=== PATIENT | male | born 1965 | race African-American/Black ===

== ENCOUNTER 2016-11-24 13:14 | Emergency (ER) | payer OTHER ==
[~2016-11-24] VITALS: Ht 182.9 cm; Wt 101.4 kg
[~2016-11-24 13:14] MED LIST: ALLO300T46 PO; AMLO-145 PO; ATEN-51 PO; DIGO125T6 PO; FAMO20TA18 PO; HYDR-762 PO; POTA8TAB2 PO; SIMV40TA2 PO; VALS320T11 PO; WARF2.5T PO
[2016-11-24 13:24] VITALS: Ht 182.9 cm; Wt 101.4 kg
--- NOTE | 2016-11-24 16:04 | ERA ---
ER Documentation Chief Complaint Date/Time DATE: 11/24/16 TIME: 16:04 Chief Complaint Abdominal hematoma HPI The patient is a 51-year-old male, presenting to the ER because he fell 2 days ago and had the right-sided abdominal hematoma. He wanted to be checked for internal injury because he is on Coumadin. He denies any hematochezia, hematuria, hematemesis. Denies headache, neck pain, chest pain, vomiting, dysuria, diarrhea. He smokes socially, denies drink Past medical history: Dyslipidemia, hypertension, gout Past surgical history: Aortic valve replacement ROS All systems reviewed and are negative except as per history of present illness. Medications Home Meds Reported Medications Hydrocodone Bit-Acetaminophen* (Colver*) 10-325 Mg Tablet, 1 TAB PO Q4H Y for PAIN, TAB 12/22/14 Atenolol* (Atenolol*) 25 Mg Tablet, 25 MG PO BID, TAB 12/22/14 Amlodipine Besylate* (Amlodipine Besylate*) 5 Mg Tablet, 2.5 MG PO DAILY, TAB 12/22/14 Allopurinol* (Zyloprim*) 300 Mg Tablet, 300 MG PO DAILY 12/27/13 Valsartan* (Diovan*) 320 Mg Tablet, 160 MG PO BID 11/21/09 Digoxin* (Lanoxin*) 125 Mcg Tablet, 125 MCG PO DAILY DAILY 11/21/09 Warfarin Sodium* (Coumadin*) 2.5 Mg Tablet, 5 MG PO DAILY 11/21/09 Potassium Chloride* (Klor-Con*) 8 Meq Tablet.sa, 8 MEQ PO DAILY 11/21/09 Famotidine* (Famotidine*) 20 Mg Tablet, 20 MG PO BID DAILY 11/21/09 Simvastatin* (Zocor*) 40 Mg Tablet, 40 MG PO QHS QHS 11/21/09 Allergies Allergies: Coded Allergies: No Known Drug Allergies (Verified Allergy, Mild, 03/18/16) PMhx/Soc History of Surgery: Yes Anesthesia Reaction: No Hx Neurological Disorder: No Hx Respiratory Disorders: No Hx Cardiac Disorders: Yes (DM, HIGH CHOLESTROL) Hx Psychiatric Problems: No Hx Miscellaneous Medical Probl: Yes (HTN, DYSLIPIDEMIA) Hx Alcohol Use: Yes (1-2 DRINKS/WEEK) Hx Substance Use: No Hx Tobacco Use: No Physical Exam Vitals Vital Signs Date Time Temp Pulse Resp B/P Pulse Ox O2 Delivery O2 Flow Rate FiO2 11/24/16 17:40 97.9 57 18 141/80 100 Room Air 11/24/16 13:24 97.8 61 18 143/68 100 Physical Exam Const: No acute distress. Head: Atraumatic. Eyes: Normal Conjunctiva. ENT: Normal External Ears, Nose and Mouth. Neck: Full range of motion. No meningismus. Resp: Clear to auscultation bilaterally. Cardio: Regular rate and rhythm, no murmurs. Abd: Soft, non distended, normal bowel sounds, non tender. Small right sided abdominal hematoma, no rigidity, rebound, CVA tenderness Skin: No petechiae or rashes. Back: No midline or flank tenderness. Ext: No cyanosis, or edema. Neur: Awake and alert. No focal deficit Psych: Normal Mood and Affect. Result Diagram: 11/24/16 1645 11/24/16 1645 Results 24 hrs Laboratory Tests Test 11/24/16 16:45 Activated Partial Thromboplast Time 44.4Sec Alanine Aminotransferase (ALT/SGPT) 40IU/L Albumin 4.4g/dl Albumin/Globulin Ratio 1.12 Alkaline Phosphatase 97IU/L Anion Gap 17 Aspartate Amino Transf (AST/SGOT) 38IU/L Basophils # 0.010^3/ul Basophils % 0.7% Blood Morphology Comment Blood Urea Nitrogen 15mg/dl Calcium Level 9.4mg/dl Carbon Dioxide Level 29mmol/L Chloride Level 101mmol/L Creatinine 0.98mg/dl Direct Bilirubin 0.00mg/dl Eosinophils # 0.110^3/ul Eosinophils % 1.7% Globulin 3.90g/dl Glucose Level 102mg/dl Hematocrit 38.2% Hemoglobin 12.2g/dl INR International Normalized Ratio 3.28 Indirect Bilirubin 0.8mg/dl Lipase 46U/L Lymphocytes # 2.710^3/ul Lymphocytes % 45.7% Mean Corpuscular Hemoglobin 25.3pg Mean Corpuscular Hemoglobin Concent 31.8g/dl Mean Corpuscular Volume 79.6fl Mean Platelet Volume 7.5fl Monocytes # 0.610^3/ul Monocytes % 9.3% Neutrophils # 2.610^3/ul Neutrophils % 42.6% Nucleated Red Blood Cells # 0.010^3/ul Nucleated Red Blood Cells % 0.0/100WBC Platelet Count 50394^3/UL Potassium Level 4.8mmol/L Prothrombin Time 33.9Sec Prothrombin Time Ratio 2.6 Red Blood Count 4.8010^6/ul Red Cell Distribution Width 13.2% Sodium Level 142mmol/L Total Bilirubin 0.8mg/dl Total Protein 8.3g/dl White Blood Count 6.010^3/ul Current Medications Medications (Trade) Dose Ordered Sig/Tesfaye Route PRN Reason Start Time Stop Time Status Last Admin Dose Admin IV Flush 10 ml 10 ml STK-MED ONCE .ROUTE 11/24/16 17:56 11/24/16 17:57 DC 11/24/16 19:00 Sodium Chloride (NS) 100 ml @ ud STK-MED ONCE .ROUTE 11/24/16 17:56 11/24/16 17:57 DC 11/24/16 19:04 Iohexol (Omnipaque 300mg/ ml) 150 ml STK-MED ONCE .ROUTE 11/24/16 17:56 11/24/16 17:57 DC 11/24/16 19:02 Procedures/[place] [id number] Radiology Main Line: [phone] DIAGNOSTIC IMAGING REPORT Patient: KIM MONSALVE : 1965 Age: 51 Sex: M MR #: [id number] DOS: 11/24/16 1609 Ordering MD: ISABELLA ROSENTHAL MD Location: E/R Room/Bed: PROCEDURE: CT Abdomen and Pelvis with contrast. CLINICAL INDICATION: Right flank pain after fall, history of kidney stones. TECHNIQUE: A CT scan of the abdomen and pelvis was performed with intravenous contrast. The patient was scanned following the uncomplicated intravenous administration of 100 cc of Omnipaque-300. Coronal and sagittal reformatted images were obtained from the axial source images. Images were reviewed on a high-resolution PACS workstation. CTDIvol: 19.60 mGy. DLP: 1098.89 mGy-cm. One or more of the following dose reduction techniques were used: - Automated exposure control. - Adjustment of the mA and/or kV according to patient size. - Use of iterative reconstruction technique. COMPARISON: None. FINDINGS: The lung bases are clear. There are epicardial pacer leads in the anterior thoracoabdominal region. The liver is unremarkable. The gallbladder is normal in appearance. The common bile duct is not dilated. The spleen is not enlarged. No pancreatic lesion is identified and there is no pancreatic ductal dilatation. The adrenal glands are unremarkable. The kidneys are normal in size. There is no perinephric fat stranding. No hydronephrosis is seen. There are a few nonobstructing stones in both kidneys measuring up to 2 mm on the right. The small and large bowel are normal in caliber. There is no bowel wall thickening. The appendix is normal. The urinary bladder is unremarkable. The pelvic organs are within normal limits. No lymphadenopathy is identified. There is no ascites. No pneumoperitoneum is seen. There are mild arterial calcifications. There is infiltration of the subcutaneous fat along the right flank. No suspicious osseous lesion is idenitified. There is partial fusion across the anterior left sacroiliac joint. IMPRESSION: 1. Infiltration of the subcutaneous fat along the right flank, probably post- traumatic. 2. No evidence of injury to abdominal and pelvic viscera. 3. No fracture. 4. A few nonobstructing stones in both kidneys measuring up to 2 mm on the right. RPTAT: HTAR .Miles Jenkins MD, MD Date Time Electronically viewed and signed by .Miles Jenkins MD, on 11/24/2016 19:21 .R/ CC: ISABELLA ROSENTHAL MD MEDICAL MAKING DECISION: The patient is a 51-year-old male, presenting with acute abdominal hematoma. The differential diagnoses considered include but are not limited to cholelithiasis, cholecystitis, cystitis, pancreatitis, hepatitis, gastritis, peptic ulcer disease, gastric ulcer, appendicitis, diverticulitis, cholangitis, choledocholithiasis, partial small bowel obstruction. Departure Diagnosis: Primary Impression: Abdominal wall hematoma Condition: Good Comments I discussed the findings with the patient. I advised the patient to follow-up with the primary physician in about 1-2 days, sooner if needed and return if any concern. ISABELLA ROSENTHAL MD Nov 24, 2016 16:04
[2016-11-24 16:52] LABS: BASOPHILS % 0.7 % (0.0-2.0); EOSINOPHILS # 0.1 10^3/ul (0.0-0.5); EOSINOPHILS % 1.7 % (0.0-7.0); HEMATOCRIT 38.2 % (42.0-52.0); HEMOGLOBIN 12.2 g/dl (14.0-18.0); LYMPHOCYTES # 2.7 10^3/ul (0.8-2.9); LYMPHOCYTES % 45.7 % (15.0-51.0); MEAN CORPUSCULAR HEMOGLOBIN 25.3 pg (29.0-33.0); MEAN CORPUSCULAR HGB CONC 31.8 g/dl (32.0-37.0); MEAN CORPUSCULAR VOLUME 79.6 fl (82.0-101.0); MEAN PLATELET VOLUME 7.5 fl (7.4-10.4); MONOCYTE # 0.6 10^3/ul (0.3-0.9); MONOCYTES % 9.3 % (0.0-11.0); NEUTROPHIL # 2.6 10^3/ul (1.6-7.5); NEUTROPHILS % 42.6 % (39.0-77.0); PLATELET COUNT 278 10^3/UL (140-440); RED CELL DISTRIBUTION WIDTH 13.2 % (11.5-14.5)
[2016-11-24 16:53] LABS: CONDITION 1; LH ANALYZER COMMENTS 1
[2016-11-24 17:04] LABS: INR 3.28; PARTIAL THROMBOPLASTIN TIME 44.4 Sec (25.0-35.0); PROTIME 33.9 Sec (12.2-14.2); PT RATIO 2.6
[2016-11-24 17:12] LABS: ALBUMIN 4.4 g/dl (3.3-4.9); POTASSIUM 4.8 mmol/L (3.5-5.1)
[2016-11-24 17:15] LABS: ALBUMIN/GLOBULIN RATIO 1.12; BILIRUBIN,INDIRECT 0.8 mg/dl (0-1.1); BILIRUBIN,TOTAL 0.8 mg/dl (0.2-1.3); CALCIUM 9.4 mg/dl (8.4-10.2); CREATININE 0.98 mg/dl (0.61-1.24); TOTAL PROTEIN 8.3 g/dl (6.1-8.1)
[2016-11-24] MEDS ORDERED: IOHEXOL 300MG/ML 150 ML BTL ONE (17:56)
[2016-11-24] MEDS ORDERED: SOD CHLORIDE 0.9% 100 ML ONE (17:56)
--- NOTE | 2016-11-24 19:21 | RADRPT ---
PROCEDURE: CT Abdomen and Pelvis with contrast. CLINICAL INDICATION: Right flank pain after fall, history of kidney stones. TECHNIQUE: A CT scan of the abdomen and pelvis was performed with intravenous contrast. The patie nt was scanned following the uncomplicated intravenous administration of 100 cc of Omnipaque-300. C oronal and sagittal reformatted images were obtained from the axial source images. Images were revie wed on a high-resolution PACS workstation. CTDIvol: 19.60 mGy. DLP: 1098.89 mGy-cm. One or more of the following dose reduction techniques were used: - Automated exposure control. - Adjustment of the mA and/or kV according to patient size. - Use of iterative reconstruction technique. COMPARISON: None. FINDINGS: The lung bases are clear. There are epicardial pacer leads in the anterior thoracoabdominal region. The liver is unremarkable. The gallbladder is normal in appearance. The common bile duct is not dila benjy. The spleen is not enlarged. No pancreatic lesion is identified and there is no pancreatic ducta l dilatation. The adrenal glands are unremarkable. The kidneys are normal in size. There is no perinephric fat stranding. No hydronephrosis is seen. Th ere are a few nonobstructing stones in both kidneys measuring up to 2 mm on the right. The small and large bowel are normal in caliber. There is no bowel wall thickening. The appendix is normal. The urinary bladder is unremarkable. The pelvic organs are within normal limits. No lymphadenopathy is identified. There is no ascites. No pneumoperitoneum is seen. There are mild a rterial calcifications. There is infiltration of the subcutaneous fat along the right flank. No suspicious osseous lesion is idenitified. There is partial fusion across the anterior left sacroi liac joint. IMPRESSION: 1. Infiltration of the subcutaneous fat along the right flank, probably post-traumatic. 2. No evidence of injury to abdominal and pelvic viscera. 3. No fracture. 4. A few nonobstructing stones in both kidneys measuring up to 2 mm on the right. RPTAT: HTAR .Miles Jenkins MD, MD Date Time Electronically viewed and signed by .Miles Jenkins MD, MD on 11/24/2016 19:21 .[place]
[2016-11-24 19:56] VITALS: BP 144/68; PULSE 59; RESP 18; TEMP 98.6
== END 2016-11-24 19:59 | disposition home or self-care (01) ==
LOC: E/R 13:14
DX: S30.1XXA Contusion of abdominal wall, initial encounter (principal); I10 Essential (primary) hypertension; E11.9 Type 2 diabetes mellitus without complications; W18.39XA Other fall on same level, initial encounter; Y92.9 Unspecified place or not applicable; Z79.01 Long term (current) use of anticoagulants
CPT/HCPCS: 74177; 80053; 83690; 85025; 85610; 85730; 93005; Q9967; Z7502; Z7610

== ENCOUNTER 2019-05-16 08:05 | Day surgery (SDC) | payer OTHER ==
[~2019-05-16] VITALS: Ht 182.9 cm; Wt 99.0 kg
[~2019-05-16 08:05] MED LIST changes: +ALLO300T2 PO; -ALLO300T46 PO; +ALLO300T84 PO; +AMLO5TAB4 PO; +CHOL10009 PO; +COU1 PO; +DIGO125T PO; -DIGO125T6 PO; +DIGO125T93 PO; +FER325 PO; +FURO20TA3 PO; +INDO-39 PO; +POTA8CAP PO; +SIMV40TA3 PO; -VALS320T11 PO; +VALS320T2 PO; +VENL75CA89 PO
[2019-05-16 09:11] VITALS: Ht 182.9 cm; Wt 99.0 kg
[2019-05-16 09:13] VITALS: BP 117/56; PULSE 54; RESP 16
[2019-05-16] MEDS ORDERED: LIDOCAINE 2% VISC 15 ML CUP ONE (09:20)
[2019-05-16] MEDS ORDERED: MIDAZOLAM 1 MG/ML 2 ML INJ ONE ×2 (09:48→10:40)
[2019-05-16] MEDS ORDERED: FENTAnyl 50 MCG/ML VIAL ONE (09:49)
[2019-05-16 11:47] VITALS: BP 123/74; PULSE 57; RESP 18
--- NOTE | 2019-05-18 15:44 | RADRPT ---
Transesophageal Echo Report Patient Name: KIM MONSALVEPatient ID: [id number] : [birth year] (54y 1m)Study Date: 05/16/2019 9:56:46 AM Gender: MAccession #: [id number] Tech: SN Location: Ref.Physician: DUSTIN HERNANDEZ Height(Cm): BSA: Weight(Kg): Quality: GoodAccount #: Procedures: Transesophageal Echo Report: Transesophageal echocardiogram was performed. PREP: Patient received pre-procedure education; informed consent, baseline vital signs, and focused history and physical were obtained. SEDATION: Oropharangeal anesthesia was achieved using 2-3 sprays of Hurricane topical anesthesia. Systemic sedation was achieved. ESOPHAGEAL INTUBATION: After suitable sedation, the probe was passed. Continuous pulse oximetry, electrocardiographic, and blood pressure monitoring were maintained throughout the procedure. Standard views were obtained in the transgastric, mid-esophageal, and basal planes at approximately 0, 30, 90, and 120 degrees. In addition, a normal saline study was performed. No immediate MARCO ANTONIO complications noted. Indications: Prosthetic Valve Dysfunction. Description of Procedure: Rangappa. Zeeshan Sinclair A complete transesophageal echocardiogram study was performed. Additional evaluation with color flow Doppler and limited spectral Doppler was performed. Continuous HR, BP, ECG, and O2 sat monitoring was performed during the procedure. The patient received pre-procedural education. Baseline vital signs and a focused history and physical were obtained. The MARCO ANTONIO study was then performed under deep sedation with IV propofol provided by the anesthesiology service. After suitable sedation, the probe was passed without difficulty. Continuous pulse oximetry, electrocardiographic monitoring, and blood pressure monitoring were maintained throughout the procedure. No complications were noted and the patient was recovered without difficulty. Findings: Left Ventricle: Normal left ventricular systolic function. Ejection fraction is visually estimated at. Ejection fraction is measured at 55 %. No left ventricular thrombus visualized. Right Ventricle: Normal right ventricular systolic function. Left Atrium: There is mild enlargement of left atrium. No left atrial thrombus. Right Atrium: Not well visualized. Atrial Septum: Normal atrial septum. No shunt by color Doppler. Mitral Valve: Normal appearance and function of the mitral valve with trace physiologic regurgitation. Aortic Valve: Normal appearing and functioning aortic valve prosthesis. Tricuspid Valve: Normal appearance and function of the tricuspid valve with trace physiologic regurgitation. Pericardium: Normal pericardium with no significant pericardial effusion. Conclusions: Normal left ventricular systolic function. Ejection fraction is visually estimated at. Ejection fraction is measured at 55 %. No left ventricular thrombus visualized. There is mild enlargement of left atrium. No left atrial thrombus. Normal appearing and functioning aortic valve prosthesis with trace regurgitation. Normal atrial septum. No shunt by color Doppler. Electronically Signed By: Dustin Hernandez 2019-05-18 15:46:27 PDT
== END 2019-05-16 12:15 | disposition home or self-care (01) ==
LOC: SDS 08:05
PROVIDERS: ATTEND Internal Medicine Cardiovascular Disease
DX: I51.7 Cardiomegaly (principal)
CPT/HCPCS: 93312; 93320; 93325; J2250; J3010; Z7610